=== PATIENT | male | born 1975 | race African-American/Black ===

== ENCOUNTER 2022-10-30 18:38 | Emergency (ER) | payer BC ==
[~2022-10-30] VITALS: Ht 175.3 cm; Wt 92.0 kg
[2022-10-30] MEDS ORDERED: IBUPROFEN 600MG TABLET PO ONE (23:30)
[2022-10-30 23:46] VITALS: BP 152/107
[2022-10-31] MEDS ORDERED: IBUP-2029 PO (00:22)
== END 2022-10-31 00:40 | disposition home or self-care (01) ==
LOC: ER 22:21
DX: S63.696A Other sprain of right little finger, initial encounter (principal); M54.50 Low back pain, unspecified; Z90.49 Acquired absence of other specified parts of digestive tract; V43.52XA Car driver injured in collision with other type car in traffic accident, initial encounter; W22.11XA Striking against or struck by driver side automobile airbag, initial encounter; Y93.89 Activity, other specified; Y92.488 Other paved roadways as the place of occurrence of the external cause
CPT/HCPCS: 99282